=== PATIENT | female | born 1960 | race Caucasian/White ===

== ENCOUNTER 2016-09-18 16:35 | Inpatient (IN) ==
[2016-09-18 17:15] LABS: BILIRUBIN URINE NEGATIVE (NEGATIVE); BLOOD URINE 2+ (NEGATIVE); CLARITY SL. CLOUDY (CLEAR); COLOR YELLOW; GLUCOSE URINE NEGATIVE (NEGATIVE); LEUKOCYTES URINE 2+ (NEGATIVE); NITRITE URINE NEGATIVE (NEGATIVE); PROTEIN URINE TRACE mg/dL (NEGATIVE); SP GRAVITY URINE 1.005; UROBILINOGEN URINE NORMAL
[2016-09-18 17:16] LABS: URINE SOURCE CLEAN CATCH
[2016-09-18 17:17] LABS: URINE EPITHELIAL CELLS <10 /HPF (<10); URINE RBC <10 /HPF (<10)
[2016-09-18 17:18] LABS: URINE CULTURE PL NEEDED? YES
[2016-09-18] MEDS ORDERED: NS 1,000 ML IV ONE ×3 (17:25→22:55)
[2016-09-18] MEDS ORDERED: NS 1,000 ML ONE ×2 (17:34→20:33)
--- NOTE | 2016-09-18 17:34 | EKG Report ---
Test Performed on : 09/18/2016 5:08:12 PM Test Reason : TACHY Blood Pressure : / mmHG Vent. Rate : 123 BPM Atrial Rate : 123 BPM P-R Int : 144 ms QRS Dur : 082 ms QT Int : 306 ms P-R-T Axes : 075 098 059 degrees QTc Int : 438 ms Sinus tachycardia. Rightward axis Borderline ECG No previous ECGs available Unconfirmed Result
[2016-09-18 17:54] LABS: BASO% 0.1 % (0.0-0.8); EOS% 0.6 % (0.0-10.0); HEMATOCRIT 38.5 % (37.0-47.0); HEMOGLOBIN 12.9 g/dL (12.0-16.0); IMM GRAN# 0.05 X1000 (0.0-0.04); IMM GRAN% 0.3 % (0.0-0.5); LYMPH# 0.66 X1000 (1.2-3.4); LYMPH% 3.9 % (20.5-51.1); MANUAL DIFF NEEDED? YES; MCH 30.6 PG (27-31); MCHC 33.5 g/dL (33-37); MCV 91.2 FL (81-99); MONO# 0.83 X1000 (0.11-0.59); MONO% 4.9 % (1.7-9.3); MPV 9.2 FL (7.4-10.4); NEUT% 90.2 % (42.2-75.2); PLT 245 X1000 (130-400); RBC 4.22 XMIL (4.2-5.4)
[2016-09-18 18:07] LABS: AGAP 14; ALKALINE PHOSPHATASE 51 U/L (32-104); AMYLASE 53 U/L (20-200); BUN 16 mg/dL (8-22); CALCIUM 8.8 mg/dL (8.8-10.2); CHLORIDE 92 mmol/L (98-107); COSMO 258; GOT 13 U/L (10-30); GPT 10 U/L (10-36); POTASSIUM 3.7 mmol/L (3.5-5.1); SODIUM 127 mmol/L (136-145); TCO2 21 mmol/L (25-35)
[2016-09-18 18:19] LABS: BANDS 1 % (0-1); LYMPHS 5 % (21-51); MONO 7 % (1-9)
[2016-09-18] MEDS ORDERED: MOTRIN PO ONE (20:29)
[2016-09-18] MEDS ORDERED: ROCEPHIN 1 GM/NS 1 GM/50 ML IVPB IV ONE (21:39)
[2016-09-18] MEDS ORDERED: ZOFRAN IV PRN (22:55)
[2016-09-19] MEDS: MORPHINE IV PRN ×4 (02:15→19:35)
--- NOTE | 2016-09-19 05:40 | PROVIDER DOCUMENTATION ---
This chart was entered by Chandni Diaz Scribe, acting as scribe for Quincy Ponce DO. HPI-General Adult - General Chief Complaint: Back Pain Stated Complaint: UTI SX Time Seen by Provider: 09/18/16 17:17 Source: patient Allergies/Adverse Reactions: Patient Allergies Allergy/AdvReac Type Severity Reaction Status Date / Time No Known Allergies Allergy Verified 01/03/16 10:58 Home Medications: Home Medication List Medication Instructions Recorded Confirmed Last Taken Type Ascorbic Acid [Vitamin C] 500 mg PO DAILY 09/19/16 09/19/16 09/18/16 History Azelastine 137 Mcg Nasal [place] 2 sprays VALENTINE DAILY 09/19/16 09/19/16 09/18/16 History [Astelin Nasal [place]] Bacillus Coagulans [Probiotic] 1 each PO DAILY PRN PRN 09/19/16 09/19/16 History Ashkum [place] Extract 250 mg PO DAILY 09/19/16 09/19/16 09/18/16 History Progesterone,Micronized 1 cap PO QHS 09/19/16 09/19/16 09/18/16 History [Progesterone] Vitamin D3/Vitamin K2 (Mk4) [K2 1 tab PO DAILY 09/19/16 09/19/16 09/18/16 History Plus D3 Tablet] - History of Present Illness -Gen Adult Nature of Presenting Problems: 55 yo F presents to the ER with complaint of low back pain. Pt states she had a UTI last week, just finished Macrodantin last night. Today states the pain is worse, heart is racing. Location of Pain/Injury: reports: back Pain Radiation: reports: no radiation Onset/Duration: reports: this morning Timing: reports: still present Associated Symptoms: reports: back/neck pain, fever/chills, genitourinary problems Review of Systems - Adult - REVIEW OF SYSTEMS - ADULT Constitutional: reports: fever. denies: chills Eyes: reports: no symptoms reported Ears, Nose, Mouth & Throat: reports: no symptoms reported Cardiovascular: denies: chest pain, palpitations Respiratory: denies: cough, shortness of breath Gastrointestinal: reports: no symptoms reported Genitourinary: reports: no symptoms reported Musculoskeletal: reports: back pain, joint pain Integumentary: reports: no symptoms reported Neurological: reports: no symptoms reported Psychiatric: reports: no symptoms reported Endocrine: reports: no symptoms reported Hematologic/Lymphatic: reports: no symptoms reported Allergic/Immunologic: reports: no symptoms reported All Other Systems: Reviewed and Negative Past History - Adult - PAST MEDICAL HISTORY-ADULT Review of Records: reports: Nursing Assessment Review, Medications Reviewed Other Conditions: reports: other (mono, hyplori) - PRIOR SURGERIES/PROCEDURES Surgical/Procedure History: reports: hysterectomy, hernia repair - IMMUNIZATION STATUS Childhood Immunizations: See Nurse Assessment Flu Vaccine: See Nurse Assessment Physical Exam-General - PHYSICAL EXAM-ADULT Initial Vital Signs Reviewed: Yes - CONSTITUTIONAL General Appearance: alert, no apparent distress - EYES Eyes: PERRL/EOMI, pink conjunctivae - HEAD, EARS, NOSE, MOUTH & THROAT HENMT: normocephalic/atraumatic, normal ENT inspection - NECK Neck: supple, normal inspection - RESPIRATORY Respiratory: no respiratory distress, no accessory muscle use - CARDIOVASCULAR Cardiovascular: normal peripheral pulses, tachycardia - GASTROINTESTINAL (ABDOMEN) Abdominal Exam: soft, tenderness (generalized) - MUSCULOSKELETAL Back Exam: CVA tenderness (mild, bilat), decreased range of motion (pain) Extremity: normal gait, normal inspection - SKIN Integumentary: normal color, warm/dry - NEUROLOGIC Neurologic: grossly normal, no motor/sensory deficits - PSYCHIATRIC Psych/Mental Status: normal mood/affect, normal thought content, normal thought process, oriented x 3 Progress - PLAN OF CARE/RESULTS Progress/Plan/Lab Results: Vital Signs - 8 hr 09/18/16 16:59 Temperature 98.2 F Pulse Rate 138 H Respiratory Rate 24 Blood Pressure 107/60 O2 Sat by Pulse Oximetry 96 Laboratory Results - last 24 hr 09/18/16 16:55 Urine Source CLEAN CATCH Urine Color YELLOW Urine Clarity SL. CLOUDY A Urine pH 7.0 Ur Specific [place] 1.005 Urine Protein TRACE A Urine Ketones 3+(Large) A Urine Blood 2+ A Urine Nitrite NEGATIVE Urine Bilirubin NEGATIVE Urine Urobilinogen NORMAL Urine Microscopic RBC <10 Urine WBC 2+ A Urine Microscopic WBC 10-20 A Ur Epithelial Cells <10 Urine Bacteria 1+ Urine Glucose NEGATIVE Orders Category Date Time Status URINALYSIS PL W/POSS RFLX CULT [URINALYSIS] Stat Lab 09/18/16 16:55 Completed URINE CULTURE [RM] Routine Lab 09/18/16 17:18 Ordered EKG [EKG] Stat Ther 09/18/16 17:12 Ordered Result Diagrams: 09/18/16 17:44 09/18/16 17:44 - EKG 1 Time of EKG reading by physician:: 17:08 EKG Read and Signed by:: Reji Lal EKG Interpretation (*Must complete 3 of following elements*): Normal (borderline ) Rate: 123 Rhythm: sinus tach [place]: right QRS: normal VT Interval: normal ST Wave: normal - CHANGE OF SHIFT REPORT (ED Provider) Report Given and Care Transferred to:: Dr. Ponce Time of Transfer: 18:01 Items Pending: Labs Departure - Departure Time of Disposition Decision: 02:00 DIAGNOSIS: Pyelonephritis Disposition: ADMITTED INPATIENT 09 Certified Medical Emergency: Emergent Condition: Stable This chart was documented by the indicated scribe, (Chandni Diaz Scribe) and accurately reflects the services I performed and decisions made by Kris jang Deepak K., DO, as attested by the provider's signature.
[2016-09-19] MEDS ORDERED: NS 1,000 ML ONE ×2 (06:15→16:44)
[2016-09-19] MEDS ORDERED: CULTURELLE PO PRN (08:11)
[2016-09-19] MEDS ORDERED: NS 1,000 ML IV SCH (08:15)
--- NOTE | 2016-09-19 09:17 | Diag Imaging Result Document ---
PROCEDURE NAME: CT ABD/PELVIS W/ IV CONT ONLY - 09/18/2016 CT OF THE ABDOMEN WITH INTRAVENOUS CONTRAST: FINDINGS: There is some small airway opacification throughout much of the peripheral portion of the right upper lobe which may be early pneumonia. There is a lobulated noncalcified nodule in the left lower lobe on image 3 measuring 13 mm in greatest dimension. There is some stranding around this nodule. It is incompletely imaged as it is also on the first image. The spleen is not enlarged. The adrenal glands are not enlarged. There is a hypodense lesion in the posterior right hepatic lobe on image 54 measuring 13 mm in diameter. This may represent a congenital cyst but is too small to characterize by density. Otherwise, the liver is unremarkable. There is no evidence of cholelithiasis. The pancreas is unremarkable. There is a fairly large amount of stool in the colon. There is atherosclerotic calcification in the aorta. There is no evidence of aneurysm. The mesenteric vessels appear to be patent. CT OF THE PELVIS WITH INTRAVENOUS CONTRAST: FINDINGS: There is no evidence of appendicitis. There has been hysterectomy. There is no evidence of free fluid or adenopathy. The regional skeleton is intact. IMPRESSION: Left lower lobe pulmonary nodule and possible early right lower lobe pneumonia. Constipation.
--- NOTE | 2016-09-19 09:22 | Diag Imaging Result Document ---
PROCEDURE NAME: CT THORAX W/O CONTRAST - 09/18/2016 CT THORAX WITHOUT CONTRAST: No contrast administered per request of the referring provider. A dose-reduction protocol was used. COMPARISON: No comparison CT thorax is available. FINDINGS: There are COPD changes. There is some apparent peripheral fibrosis with honeycombing, most prominent at the right lower lobe. There is a 1.1 cm noncalcified nodular lesion at the posterior medial left lower lobe. There is a small left pleural effusion. There are a few mildly prominent mediastinal lymph nodes. There is no consolidation or pneumothorax identified. IMPRESSION: 1. COPD changes. Mild pulmonary fibrosis. 2. 1 cm noncalcified nodule at left lower lobe. This could be malignant or benign. 3. Small left pleural effusion. A few mildly prominent mediastinal lymph nodes. 4. No evidence of pneumonia. The on-call radiologist provided preliminary results at 11:08 p.m. on 09/18/2016.
[2016-09-19] MEDS: ASTELIN NASAL SPRAY NAS SCH (09:40)
[2016-09-19] MEDS: TYLENOL PO PRN ×2 (10:02→21:00)
[2016-09-19 12:50] LABS: URIC ACID 3.5 mg/dL (2.4-5.7)
--- NOTE | 2016-09-19 13:56 | HISTORY AND PHYSICAL ---
PRIMARY CARE PHYSICIAN: Dr. Amaury Mcknight CHIEF COMPLAINT: Fatigue, fever, and a low back pain. HISTORY OF PRESENT ILLNESS: Ms. Vogel is a 55-year-old female, seen in my office approximately 5 days ago with a UTI status post taking low-dose Cipro for 4 days with minimal response. The patient seemed to be in good condition otherwise in our office visit. Labs were performed and additional antibiotic doxycycline provided. Status post urinalysis showed no growth likely secondary to the concomitant antibiotic use. Urine culture also grew back negative as well. In the emergency room the patient was noted to have back pain and persistent UTI symptoms that worsened over the 24 hours prior and had a fever and a white count greater than 16 so decision to admit was performed. ALLERGIES: Patient has no known drug allergies. She does have some medication intolerances. CURRENT PROBLEM LIST: Includes chronic UTI and nummular eczema. PAST MEDICAL HISTORY: Smoking, allergic rhinitis and nonspecific back pain. PAST SURGICAL HISTORY: Patient had hernia repair in 2011, hysterectomy in 2005. CURRENT MEDICATIONS: Topical Temovate 2 times a day to the bilateral heels. Duexis tablets p.r.n. headache, as performed by Urology, vitamin D 3 1000 mg daily. Vitamin D 3, probiotic, azelastine 137 mcg 1 inhalation 2 times a day intranasally. Anny 180 mg tablets 1 tab daily and has been prescribed doxycycline which she has not used. FAMILY HISTORY: Notable for nondescript cancer in a close relative, coronary artery disease and diabetes mellitus multiple family members. SOCIAL HISTORY: Currently lives with . Very close to both mother and grandchildren. Works on a farm. Has a history of smoking, but she has recently quit within the last year with good effect. Currently . Denies alcohol substance abuse. REVIEW OF SYSTEMS: Twelve point review of systems pertinent for items mentioned in the HPI. Patient is currently denying chest pain, and denying shortness of breath. Does describe some back pain and bilateral flank. Does describe some difficulty ambulating due to the back pain and does describe some symptoms associated with urination. The patient states that there is no visual blood in the stool or sputum. PHYSICAL EXAMINATION: VITAL SIGNS: Temperature 101.6 degrees T-max. Pulse 102, respirations 18, blood pressure 125/71, O2 saturation 97% on 4 L nasal cannula. GENERAL: Thin female, mild to moderate distress, slightly ill appearing. Neck is thin. No JVD. OP is clear with dry mucous membranes noted. Normal dentition. HEENT: Pupils are equal, round, reactive to light and accommodation. Extraocular movements are intact. CARDIOVASCULAR: Tachycardic without any murmurs, gallops, or rubs noted. LUNGS: Clear to auscultation anteriorly. ABDOMEN: Soft, nontender, nondistended. There is some mild suprapubic tenderness. No CVA tenderness noted on exam. EXTREMITIES: No cyanosis, clubbing, edema. NEUROLOGICAL: Cranial nerves 2-12 are grossly intact. The patient is alert and oriented x3. LABORATORY DATA: WBC 6.9, with an hemoglobin and hematocrit of 12 and 38, platelets of 245,000. Neutrophils at 90.2%, chemistry shows hyponatremia with a sodium of 127, anion gap 14, creatinine 0.8, glucose 121, urine shows 3+ ketones, 2+, blood 2+, WBCs, influenza A and B noted to be negative. Microbiology showed blood in urine. Cultures pending. Currently no growth. IMAGING: The patient had abdominal and pelvis CT that showed left lower lobe pulmonary nodule. Possible early right lower lobe pneumonia and constipation. Some airway opacification throughout much of the peripheral portion of the right upper lobe early onset pneumonia, lobulated noncalcified nodule left lower lobe 13 mm in greatest dimension. Some stranding. Adrenal glands are not enlarged. They were unremarkable and no evidence of cholelithiasis. A very large amount of stool in the colon. No evidence of aneurysm. Image has no noted evaluation of the kidneys bilaterally. Chest CT was performed regarding the nodule. Change consistent with COPD, mild pulmonary fibrosis and a 1 cm noncalcified nodule left lower lobe could be malignant or benign small left pleural effusion. Two mildly prominent mediastinal lymph nodes. No evidence of pneumonia. ASSESSMENT/PLAN: A 55-year-old white female with presumed pyelonephritis presents to the ER with: 1. Evolving right lower lobe pneumonia. 2. Left lower lobe pulmonary nodule of unknown significance and a question of pleural effusion and a past medical history of smoker that has quit in the last year. 3. Hyponatremia. 4. History of antibiotic use with cultures pending regarding question of pyelonephritis. 5. Fatigue. 6. Weight loss. PLAN: We will admit to general medical floor. Treat with IV fluid resuscitation to help patient's balance. Continue with the Rocephin for the antibiotic coverage and further evaluate the lung issues with labs and imaging as necessary. We will consult pulmonary regarding the case to find out if further issues and see if it is possible to sample any of the pleural fluid that is currently evaluated. The patient should also have a workup for pulmonary embolism including a D- dimer and some cancer tumor markers CA-19-9. See the orders as placed in the chart. We will continue to follow the patient daily along with the specialists as we have available. cc: Amaury Mcknight MD
[2016-09-19] MEDS: NS 1,000 ML IV SCH ×2 (16:49→19:52)
[2016-09-19] MEDS: ROCEPHIN 1 GM/NS 1 GM/50 ML IVPB IV SCH (21:48)
[2016-09-20] MEDS: MORPHINE IV PRN (00:23)
[2016-09-20] MEDS ORDERED: NS 1,000 ML ONE (01:34)
[2016-09-20] MEDS: NS 1,000 ML IV SCH (02:15)
[2016-09-20 06:35] LABS: MANUAL DIFF NEEDED? NO
[2016-09-20 06:53] LABS: BASO% 0.1 % (0.0-0.8); EOS# 0.35 X1000 (0.0-0.7); HEMATOCRIT 33.3 % (37.0-47.0); HEMOGLOBIN 10.7 g/dL (12.0-16.0); IMM GRAN# 0.02 X1000 (0.0-0.04); IMM GRAN% 0.3 % (0.0-0.5); LYMPH# 1.25 X1000 (1.2-3.4); LYMPH% 17.9 % (20.5-51.1); MCH 29.7 PG (27-31); MCHC 32.1 g/dL (33-37); MCV 92.5 FL (81-99); MONO# 0.46 X1000 (0.11-0.59); MONO% 6.6 % (1.7-9.3); MPV 9.8 FL (7.4-10.4); NEUT% 70.1 % (42.2-75.2); PLT 198 X1000 (130-400)
[2016-09-20 07:24] LABS: AGAP 13; ALBUMIN 3.2 g/dL (3.5-5.0); ALKALINE PHOSPHATASE 47 U/L (32-104); BUN 5 mg/dL (8-22); CALCIUM 8.2 mg/dL (8.8-10.2); CHLORIDE 105 mmol/L (98-107); COSMO 275; GOT 11 U/L (10-30); GPT 9 U/L (10-36); MAGNESIUM 1.9 mg/dL (1.5-2.7); POTASSIUM 3.4 mmol/L (3.5-5.1); SODIUM 139 mmol/L (136-145); TCO2 21 mmol/L (25-35); TOTAL PROTEIN 6.1 g/dL (6.3-8.3)
[2016-09-20] MEDS ORDERED: MORPHINE IV PRN (07:26)
[2016-09-20] MEDS ORDERED: KLOR-CON PO ONE (07:49)
[2016-09-20] MEDS: NEUTRA-PHOS PO SCH ×3 (08:47→17:35)
[2016-09-20] MEDS: ASTELIN NASAL SPRAY NAS SCH (08:51)
[2016-09-20 10:52] LABS: BILIRUBIN URINE NEGATIVE (NEGATIVE); BLOOD URINE 1+ (NEGATIVE); CLARITY SL. CLOUDY (CLEAR); COLOR YELLOW; GLUCOSE URINE NEGATIVE (NEGATIVE); LEUKOCYTES URINE TRACE (NEGATIVE); NITRITE URINE NEGATIVE (NEGATIVE); PH URINE 6.5; PROTEIN URINE NEGATIVE (NEGATIVE); UROBILINOGEN URINE NORMAL
[2016-09-20 11:01] LABS: URINE SOURCE CLEAN CATCH
[2016-09-20 11:02] LABS: URINE CULTURE PL NEEDED? YES; URINE EPITHELIAL CELLS >10 /HPF (<10); URINE RBC <10 /HPF (<10); URINE WBC <10 /HPF (<10)
--- NOTE | 2016-09-20 12:52 | PROGRESS NOTE ---
DATE: 09/20/2016 SUBJECTIVE: Overnight, the patient states that she slept poorly but denies anything aside from continued concentrated urine. Did have some issues regarding a nosebleed status post the use of the O2 per nasal cannula. One blood pressure episode of 94/64. OBJECTIVE: Vital signs: Temperature 97.7 degrees, pulse 78, respirations 18, blood pressure 114/56, O2 sats 97% on room air. General: Well developed, well nutritioned female older appearing than stated age. In [id number] distress. HEENT: Shows pupils equal, round, reactive to light. Extraocular movements are intact. OP is clear. Lips show mild cracking but improved over prior exam. No increased respiratory muscle use. Abdomen: Is scaphoid. No overt guarding. Extremities: Lower extremities, no cyanosis, clubbing, edema. Neurological: Cranial nerves 2-12 are grossly intact. LABS: Demonstrate a WBC of 6.97, hemoglobin and hematocrit 10.7, 33.3, MCV of 92.5, platelets of 198,000. Neutrophils 70.1 down from 90.2. Sodium 139, potassium 3.4, anion gap 13 with a BUN of 5. Glucose 94, calcium 8.2, 1.7 magnesium. CA-19-9 within normal limits of 6. Vitamin B12 7.3. TSH 3.87. Urinalysis repeat shows 1+ blood, 1+ bacteria. MICROBIOLOGY: Blood culture x2 no growth greater than 48 hours. Urine culture shows mixed romel. ASSESSMENT AND PLAN: This is a 55-year-old, white female with. 1. Leukocytosis resolved with the Rocephin. 2. Evolving right lower lobe pneumonia. Continue current therapy. 3. Left lower lobe pulmonary nodule of unknown significance. CA-19 negative. Chest x-ray in a.m. Will utilize outpatient followup. Risk of histoplasmosis versus noted. 4. Hyponatremia resolved. 5. Bacteriuria. 6. Fatigue. 7. Weight loss. Please continue further workup. We are looking for outpatient management with ID and Pulmonary to followup the chronic case and to rule out any other issues with labs that are coming back at this time. The patient is responding well. Possible discharge includes early a.m. cc: Amaury Mcknight MD
[2016-09-20] MEDS ORDERED: RESTORIL PO SCH (21:00)
[2016-09-20] MEDS: ROCEPHIN 1 GM/NS 1 GM/50 ML IVPB IV SCH (21:00)
[2016-09-21 06:27] LABS: MANUAL DIFF NEEDED? NO
[2016-09-21 06:40] LABS: BASO% 0.3 % (0.0-0.8); EOS# 0.55 X1000 (0.0-0.7); EOS% 8.9 % (0.0-10.0); HEMATOCRIT 32.7 % (37.0-47.0); HEMOGLOBIN 10.7 g/dL (12.0-16.0); IMM GRAN# 0.01 X1000 (0.0-0.04); IMM GRAN% 0.2 % (0.0-0.5); LYMPH# 2.01 X1000 (1.2-3.4); LYMPH% 32.4 % (20.5-51.1); MCHC 32.7 g/dL (33-37); MCV 91.6 FL (81-99); MONO# 0.55 X1000 (0.11-0.59); MONO% 8.9 % (1.7-9.3); MPV 10.1 FL (7.4-10.4); NEUT% 49.3 % (42.2-75.2); PLT 232 X1000 (130-400); RBC 3.57 XMIL (4.2-5.4)
[2016-09-21 07:13] LABS: AGAP 10; ALBUMIN 3.5 g/dL (3.5-5.0); ALKALINE PHOSPHATASE 44 U/L (32-104); BUN 6 mg/dL (8-22); CHLORIDE 105 mmol/L (98-107); COSMO 273; GOT 13 U/L (10-30); GPT 11 U/L (10-36); MAGNESIUM 1.9 mg/dL (1.5-2.7); POTASSIUM 4.6 mmol/L (3.5-5.1); SODIUM 138 mmol/L (136-145); TCO2 23 mmol/L (25-35); TOTAL PROTEIN 6.5 g/dL (6.3-8.3)
[2016-09-21 07:40] VITALS: BP 100/47
--- NOTE | 2016-09-21 08:11 | Diag Imaging Result Document ---
PROCEDURE NAME: CHEST-2 VIEWS - 09/21/2016 FRONTAL AND LATERAL CHEST, TWO VIEWS: COMPARISON: Compared to 10/17/2012. FINDINGS: The lungs are well expanded. The heart is not enlarged. Mild increased AP diameter to the chest with flattening of the diaphragm. No effusions. Mild scoliosis. No pneumonia. IMPRESSION: Emphysema.
--- NOTE | 2016-09-21 08:38 | DISCHARGE SUMMARY ---
ADMISSION DATE: 09/19/2016 DISCHARGE DATE: 09/21/2016 CHIEF COMPLAINT ON ADMISSION: Fever, fatigue and low back pain. HISTORY OF PRESENT ILLNESS: In brief, Ms. Juárez is a 55-year-old female, followed in my clinic with a UTI status post self administered Cipro x4 days, no response, presenting to the ER with labs consistent with wildly abnormal leukocytosis, persistent fatigue, and fever of 101.3. CONSULTS: No consults during this case. PROBLEM LIST ON DISCHARGE: 1. Right lower lobe pneumonia. 2. Left lower lobe pulmonary nodule 1.4 cm of unknown significance with questionable pleural effusion. 3. Hyponatremia. 4. Fever. 5. Fatigue. 6. Hypophosphatemia. 7. Anemia. 8. Hypokalemia. 9. Hypothyroidism subclinical. 10. Bacteriuria. HOSPITAL COURSE: Patient is admitted to the general medical floor, treated with IV fluid resuscitation along with IM/IV Rocephin x3 days in which the neutrophils decreased tremendously along with a WBC count. Evaluation with CT as noted below showed a pulmonary nodule and questions and concerns regarding patient's long history of smoking, cancer versus environmental risk factors. Further details are pending. The patient at this time is good for discharge but will have to follow closely in my clinic along with pulmonary in [place] per her own request. At the time of discharge, patient has responded well. Electrolytes are within normal limits and further labs for pending will be followed as outpatient. LABS: Pertinent WBC 16.9, down to 16.2, hemoglobin and hematocrit stable at 10.7 and 32.7 on discharge. Neutrophils down from 90 to 49.3. Sodium from 127 normalized to 138, BUN and creatinine within normal limits. Baseline 0.7. Calcium and phosphorus were repleted. Phos on discharge 3.1, CA-19-9 antigen 5 with a normal level less than 55. Vitamin B12 723. TSH 3.87. Patient had a analysis that showed 1+ blood and 1+ bacteria. EBV negative, flu A and B negative. Microbiology urine culture no growth. Blood culture x2 no growth greater than 48 hours and repeat clean-catch showed normal romel. IMAGIN09/18/2016, patient had a chest CT with impression of COPD, mild changes, mild pulmonary fibrosis. 1 cm noncalcified nodule left lower lobe considered malignant versus benign, and a small left pleural effusion. A few mildly prominent mediastinal lymph nodes. Abdominal pelvis performed with the finding as noted in the CT chest otherwise within normal limits. Chest x-ray performed on the day of discharge, with the official read pending. MEDICATIONS: Please refer to medication reconciliation order form for most up-to-date medication list. The patient will be discharged on a very small list of medications and followed closely. DISCHARGE: Patient will be discharged home in stable condition. Will follow up in my office within 1 week and schedule appointments for a PET scan, alongside follow up with Pulmonary in [place] plus or minus infectious disease for the exposures. cc: Amaury Mcknight MD
[2016-09-21] MEDS: ASTELIN NASAL SPRAY NAS SCH (08:41)
[2016-09-21] MEDS ORDERED: ROCEPHIN 1 GM/NS 1 GM/50 ML IVPB IV ONE (09:00)
== END 2016-09-21 09:45 | disposition home or self-care (01) ==
LOC: P.ED 16:35 → P.EDIPHOLD 09-19 01:23 → P.MEDSURG 09-19 15:29
PROVIDERS: ADMIT Family Medicine; ATTEND Family Medicine